=== PATIENT | male | born 2000 | race Caucasian/White ===

== ENCOUNTER 2023-01-21 10:19 | Outpatient (AMB) | payer OTHER, SELFPAY ==
--- NOTE | 2023-01-21 10:22 | A.OFFVIS_ITS ---
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 The patient describes his pain as sharp in nature. He states that he has had several injuries to his left shoulder over the last few years, including snowboarding accidents, power lifting and boxing. He has had an injection in the past which gave him temporary relief. He does have intermittent popping sensation as well. He is not able to lift weights as much as he would like because of his pain. He has tried Tylenol and anti-inflammatory medicines which gave him minimal relief. He has done physical therapy exercises which aggravated his pain. The patient did undergo an MRI of his left shoulder in May of 2022. He was told that he might have a labral tear and that an MRI arthrogram would likely be needed to confirm his diagnosis. Allergies No Known Allergies Allergy (Verified 01/21/23 10:25) Medication List - Last Reconciled 01/21/23 by Blake Salas MD lamotrigine ER 300 mg PO DAILY Physical Exam Const Other: Well-nourished well-developed very friendly male awake alert and oriented x3 in no acute distress Extrem Other: Left shoulder examination shows slightly decreased range of motion when compared to his right shoulder, pain with range of motion, positive impingement signs, positive [place]'s test Assessment & Plan Assessment & Plan (1) Superior labrum zzhlzxmb-gt-zmqnuhqdy (SLAP) tear of left shoulder: Code(s): S43.432A - Superior glenoid labrum lesion of left shoulder, initial encounter Plan Mr. Saini presents with left shoulder pain most likely due to a labral tear. Thus, I will send the patient for an MRI arthrogram of his left shoulder for further evaluation. I will see him back once the MRI is completed to discuss t he findings and treatment options. He will continue with his activity modifications in the meantime. Feel free to call me at any time his questions regarding his orthopedic management arise. I spent 21 minutes in reviewing the patient's records and imaging studies, seeing the patient and documenting in the medical record. Orders: Orders MR shoulder LT w con Today S43.432A - Superior glenoid labrum lesion of left shoulder, initial encounter [place] arthrogram shoulder LT Today S43.432A - Superior glenoid labrum lesion of left shoulder, initial encounter Coding Level of Care Code New Pt Level 2 (59987) Diagnoses Superior labrum crivvgcd-kn-tvwldgreh (SLAP) tear of left shoulder S43.432A
== END 2023-01-21 11:02 | disposition home or self-care (01) ==
PROVIDERS: Visit Provider Orthopaedic Surgery
DX: S43.432A Superior glenoid labrum lesion of left shoulder, initial encounter (principal)
CPT/HCPCS: 99202

== ENCOUNTER → 2023-01-21 10:19 | Outpatient (BNVA) | payer OTHER, SELFPAY | PROVIDERS: Visit Provider Orthopaedic Surgery ==